=== PATIENT | female | born 1980 | race Caucasian/White ===

== ENCOUNTER 2019-11-24 17:03 | Observation (INO) | payer OTHER ==
[2019-11-24 18:11] LABS: GLUCOMETER DEV NAME(LOC) 4S.; GLUCOSE,POINT OF CARE 81 MG/DL (70-110)
[2019-11-24] MEDS ORDERED: RINGERS SOLUTION,LACTATED 1,000 ML IV ONE (18:15)
[2019-11-24] MEDS ORDERED: NIFEdipine 10 MG CAPSULE PO ONE (18:45)
[2019-11-24 18:47] VITALS: BP 108/71
[2019-11-24 20:49] LABS: GLUCOMETER DEV NAME(LOC) 4S.; GLUCOSE,POINT OF CARE 104 MG/DL (70-110)
[2019-11-24] MEDS: RINGERS SOLUTION,LACTATED 1,000 ML IV SCH ×2 (23:10→23:53)
[2019-11-25] MEDS ORDERED: NIFEdipine 10 MG CAPSULE PO ONE (02:00)
[2019-11-25] MEDS ORDERED: NIFEdipine 10 MG CAPSULE PO SCH (02:15)
[2019-11-25] MEDS: RINGERS SOLUTION,LACTATED 1,000 ML IV SCH (05:17)
[2019-11-25 06:21] LABS: GLUCOMETER DEV NAME(LOC) 4S.; GLUCOSE,POINT OF CARE 69 MG/DL (70-110)
[2019-11-25 09:55] LABS: GLUCOMETER DEV NAME(LOC) 4S.; GLUCOSE,POINT OF CARE 143 MG/DL (70-110)
[2019-11-25] MEDS ORDERED: RINGERS SOLUTION,LACTATED 1,000 ML IV PRN (12:51)
[2019-11-25] MEDS ORDERED: RINGERS SOLUTION,LACTATED 1,000 ML IV SCH (12:51)
[2019-11-25] MEDS ORDERED: OXYTOCIN 30 UNITS/LACT RINGERS 500 ML IV ONE (12:51)
[2019-11-25] MEDS ORDERED: CITRIC ACID/SODIUM CITRATE 30 ML SOLUTION UDCUP PO PRN (13:00)
[2019-11-25] MEDS ORDERED: METOCLOPRAMIDE HCL 5 MG/ML 2 ML VIAL IVP PRN (13:00)
[2019-11-25] MEDS ORDERED: METHYLERGONOVINE MALEATE 0.2 MG/ML VIAL IM PRN (13:00)
[2019-11-25 14:12] LABS: GLUCOMETER DEV NAME(LOC) 4S.; GLUCOSE,POINT OF CARE 109 MG/DL (70-110)
[2019-11-25] MEDS ORDERED: OXYGEN THERAPY IH SCH (20:00)
== END 2019-11-25 14:10 | disposition home or self-care (01) ==
LOC: 4S 17:35
PROVIDERS: ADMIT Obstetrics & Gynecology; ATTEND Obstetrics & Gynecology
DX: O62.9 Abnormality of forces of labor, unspecified (principal); Z20.828 Contact with and (suspected) exposure to other viral communicable diseases; O24.419 Gestational diabetes mellitus in pregnancy, unspecified control; Z3A.35 35 weeks gestation of pregnancy
CPT/HCPCS: 59025; 76811; 82962 ×2; 87426; 96360; 96361 ×2; 99219; J7120 ×2; 96365; 96366; 93366

== ENCOUNTER 2019-12-24 18:15 | Observation (INO) | payer OTHER ==
[~2019-12-24] VITALS: Ht 154.9 cm; Wt 59.9 kg
[2019-12-24 18:50] LABS: GLUCOMETER DEV NAME(LOC) 4S.; GLUCOSE,POINT OF CARE 118 MG/DL (70-110)
[2019-12-24 19:08] VITALS: BP 120/74
[2019-12-25] MEDS ORDERED: PNV91TAB6 PO (06:23)
== END 2019-12-24 20:31 | disposition home or self-care (01) ==
LOC: 4S 18:15
PROVIDERS: ADMIT Obstetrics & Gynecology; ATTEND Obstetrics & Gynecology
DX: O62.9 Abnormality of forces of labor, unspecified (principal); Z3A.39 39 weeks gestation of pregnancy
CPT/HCPCS: 99219

== ENCOUNTER 2019-12-25 04:25 | Inpatient (IN) | payer OTHER ==
[~2019-12-25] VITALS: Ht 154.9 cm; Wt 61.7 kg
[2019-12-25] MEDS ORDERED: LIDOCAINE/PF 1% 30 ML VIAL INJ PRN (05:15)
[2019-12-25] MEDS ORDERED: RINGERS SOLUTION,LACTATED 1,000 ML IV ONE ×2 (05:15→15:38)
[2019-12-25] MEDS ORDERED: OXYTOCIN 30 UNITS/LACT RINGERS 500 ML IV ONE ×2 (05:15→16:47)
[2019-12-25] MEDS ORDERED: OXYTOCIN 30 UNITS/LACT RINGERS 500 ML IV PRN (05:15)
[2019-12-25] MEDS ORDERED: MINERAL OIL 30 ML UDCUP VG ONE (05:15)
[2019-12-25 05:51] LABS: COVID AG,FIA SOURCE NASOPHARYNGEAL
[2019-12-25] MEDS: RINGERS SOLUTION,LACTATED 1,000 ML IV SCH ×3 (05:52→18:46)
[2019-12-25] MEDS ORDERED: FentaNYL CITRATE-PF 100 MCG/2 ML VIAL IVP ONE (06:00)
[2019-12-25 06:05] VITALS: BP 115/60
[2019-12-25 06:14] LABS: BASOPHILS % (AUTO) 0.4 % (0.0-2.0); EOSINOPHILS % (AUTO) 0 % (1.0-6.0); HEMATOCRIT 39.5 % (36-46); HEMOGLOBIN 13.5 g/dL (12.0-16.0); LYMPHOCYTES # (AUTO) 1.2 K/uL (1.0-4.8); LYMPHOCYTES % (AUTO) 12.3 % (22.0-44.0); MEAN CORPUSCULAR HEMOGLOBIN 30.1 pg (26.0-34.0); MEAN CORPUSCULAR HGB CONC 34.1 G/dL (31.0-37.0); MEAN CORPUSCULAR VOLUME 88 fL (80-100); MONOCYTES # (AUTO) 0.3 K/uL (0.1-1.0); MONOCYTES % (AUTO) 3.3 % (2.0-9.0); NEUTROPHILS # (AUTO) 8.4 K/uL (1.8-7.7); PLATELET COUNT (AUTO)-OB 208 K/uL (150-450); RED BLOOD CELL COUNT(AUTO) 4.48 MIL/uL (4.00-5.20); RED CELL DISTRIBUTION WIDTH 14.9 % (11.5-14.5)
[2019-12-25] MEDS ORDERED: PNV91TAB6 PO (06:23)
[2019-12-25 06:29] LABS: GLUCOMETER DEV NAME(LOC) 4S.; GLUCOSE,POINT OF CARE 118 MG/DL (70-110)
[2019-12-25] MEDS ORDERED: ROPIVACAINE HCL/PF 0.2% 100 ML ED ONE (06:43)
[2019-12-25] MEDS ORDERED: ROPIVACAINE HCL/PF 0.2% 100 ML ED PRN (07:04)
[2019-12-25] MEDS ORDERED: NALBUPHINE HCL 10 MG/ML VIAL IVP PRN ×3 (07:15→16:30)
[2019-12-25] MEDS ORDERED: DiphenhydrAMINE HCL 50 MG/ML VIAL IVP PRN ×2 (07:15→16:30)
[2019-12-25] MEDS ORDERED: ONDANSETRON HCL 4 MG/2 ML VIAL IVP PRN ×2 (07:15→16:30)
[2019-12-25 10:03] LABS: GLUCOMETER DEV NAME(LOC) 4S.; GLUCOSE,POINT OF CARE 124 MG/DL (70-110)
[2019-12-25] MEDS ORDERED: SODIUM CHLORIDE 0.9% 1,000 ML ONE (15:38)
[2019-12-25] MEDS ORDERED: LIDOCAINE/PF 2% 5 ML VIAL ONE (15:38)
[2019-12-25] MEDS ORDERED: METOCLOPRAMIDE HCL 5 MG/ML 2 ML VIAL ONE (15:43)
[2019-12-25] MEDS ORDERED: CITRIC ACID/SODIUM CITRATE 30 ML SOLUTION UDCUP ONE (15:43)
[2019-12-25] MEDS ORDERED: CITRIC ACID/SODIUM CITRATE 30 ML SOLUTION UDCUP PO ONE (15:45)
[2019-12-25] MEDS ORDERED: METOCLOPRAMIDE HCL 5 MG/ML 2 ML VIAL IVP ONE (15:45)
[2019-12-25] MEDS ORDERED: BUPIVACAINE HCL/PF 0.25% 30 ML VIAL ONE (16:00)
[2019-12-25] MEDS ORDERED: MEPERIDINE-PF 25 MG/ML VIAL IVP PRN (16:30)
[2019-12-25] MEDS ORDERED: FentaNYL CITRATE-PF 100 MCG/2 ML VIAL IVP PRN ×2 (16:30)
[2019-12-25] MEDS ORDERED: NALOXONE HCL 0.4 MG/ML VIAL IVP PRN (16:30)
[2019-12-25] MEDS ORDERED: MORPHINE SULFATE 10 MG/ML SYRINGE IVP PRN (16:30)
[2019-12-25] MEDS ORDERED: HYDROmorphone 2 MG/ML SYRINGE IVP PRN (16:30)
[2019-12-25] MEDS ORDERED: LANOLIN 7 GM OINTMENT TP PRN (17:00)
[2019-12-25] MEDS ORDERED: OxyCODONE HCL/ACETAMINOPHEN 5-325 MG TABLET PO PRN (17:00)
[2019-12-25] MEDS: ACETAMINOPHEN 1000 MG/ISO-OSM 100 ML IV SCH (18:46)
[2019-12-25] MEDS ORDERED: METHYLERGONOVINE MALEATE 0.2 MG/ML VIAL ONE (19:21)
[2019-12-25] MEDS ORDERED: OXYGEN THERAPY IH SCH ×3 (20:00)
[2019-12-25] MEDS: MAGNESIUM HYDROXIDE SUSPENSION 30 ML UDCUP PO SCH (21:19)
[2019-12-25] MEDS: KETOROLAC TROMETHAMINE 30 MG/ML VIAL IVP SCH (22:20)
[2019-12-26] MEDS: RINGERS SOLUTION,LACTATED 1,000 ML IV SCH (03:01)
[2019-12-26] MEDS: ACETAMINOPHEN 1000 MG/ISO-OSM 100 ML IV SCH (03:32)
[2019-12-26] MEDS: KETOROLAC TROMETHAMINE 30 MG/ML VIAL IVP SCH (05:06)
[2019-12-26] MEDS ORDERED: OXYTOCIN 10 UNITS/ML VIAL IM ONE (05:44)
[2019-12-26] MEDS ORDERED: FentaNYL CITRATE-PF 100 MCG/2 ML VIAL IVP ONE (05:44)
[2019-12-26] MEDS ORDERED: LIDOCAINE/PF 2% 5 ML VIAL IM ONE (05:44)
[2019-12-26] MEDS ORDERED: MORPHINE SULFATE/PF 0.5 MG/ML 10 ML AMP IVP ONE (05:44)
[2019-12-26] MEDS ORDERED: ONDANSETRON HCL 4 MG/2 ML VIAL IVP ONE (05:44)
[2019-12-26] MEDS ORDERED: KETOROLAC TROMETHAMINE 60 MG/2 ML VIAL IM ONE (05:44)
[2019-12-26 06:00] LABS: BASOPHILS % (AUTO) 0.2 % (0.0-2.0); EOSINOPHILS % (AUTO) 0.1 % (1.0-6.0); HEMOGLOBIN 10.8 g/dL (12.0-16.0); LYMPHOCYTES # (AUTO) 1.8 K/uL (1.0-4.8); LYMPHOCYTES % (AUTO) 21.7 % (22.0-44.0); MEAN CORPUSCULAR HEMOGLOBIN 30.8 pg (26.0-34.0); MEAN CORPUSCULAR HGB CONC 34.8 G/dL (31.0-37.0); MEAN CORPUSCULAR VOLUME 89 fL (80-100); MONOCYTES # (AUTO) 0.5 K/uL (0.1-1.0); MONOCYTES % (AUTO) 5.3 % (2.0-9.0); NEUTROPHILS # (AUTO) 6.2 K/uL (1.8-7.7); NEUTROPHILS % (AUTO) 72.7 % (40.0-70.0); PLATELET COUNT (AUTO)-OB 161 K/uL (150-450); RED BLOOD CELL COUNT(AUTO) 3.49 MIL/uL (4.00-5.20); RED CELL DISTRIBUTION WIDTH 14.8 % (11.5-14.5)
[2019-12-26] MEDS: MAGNESIUM HYDROXIDE SUSPENSION 30 ML UDCUP PO SCH ×2 (08:38→20:40)
[2019-12-26] MEDS: IBUPROFEN 800 MG TABLET PO PRN ×2 (15:19→23:08)
[2019-12-26] MEDS: OxyCODONE HCL/ACETAMINOPHEN 5-325 MG TABLET PO PRN ×2 (16:29→20:40)
[2019-12-27] MEDS: MAGNESIUM HYDROXIDE SUSPENSION 30 ML UDCUP PO SCH (08:06)
[2019-12-27] MEDS: IBUPROFEN 800 MG TABLET PO PRN (08:07)
[2019-12-27] MEDS ORDERED: DOCU-275 PO (10:00)
[2019-12-27] MEDS ORDERED: IBUP-2071 PO (10:03)
[2019-12-27] MEDS ORDERED: PERCT PO (10:05)
== END 2019-12-27 14:50 | disposition home or self-care (01) | DRG 788 ==
LOC: OBSVTOIN 04:25 → 4S 04:25
PROVIDERS: ADMIT Obstetrics & Gynecology; ATTEND Obstetrics & Gynecology
PROC: 10D00Z1 Extraction of Products of Conception, Low, Open Approach (ICD-10-PCS; principal; 2019-12-25)
DX: O62.0 Primary inadequate contractions (principal); O76 Abnormality in fetal heart rate and rhythm complicating labor and delivery; Z3A.39 39 weeks gestation of pregnancy; Z37.0 Single live birth
CPT/HCPCS: 76811; 86850; 86900; 86901; 87426; J0131; J0690; J1885; J2210; J2274; J2405; J2590; J2765; J2795; J3010; J3490; J7030; J7120